=== PATIENT | male | born 1960 | race Caucasian/White ===

== ENCOUNTER 2016-09-11 11:12 | Observation (INO) | payer OTHER ==
[2016-09-11] MEDS ORDERED: ASPIRIN 81 MG CHEW PO STA (11:28)
[2016-09-11] MEDS ORDERED: NITROGLYCERIN OINT 1 INCH/GM PACKET TOPICAL STA (11:28)
[2016-09-11] MEDS ORDERED: NITROGLYCERIN SL TABS 0.4 MG TAB SUBLINGUAL STA (11:28)
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
[2016-09-11 11:48] LABS: Basophils % (A) 0 %; CH 29.6; CHCM 34.4; Eosinophils # (A) 0.1 k/uL (0-0.7); Eosinophils % (A) 1 %; HCT 43.9 % (39.0-53.0); HDW 2.58; HGB 15.2 gm/dL (13.0-17.5); Luc # (Auto) 0.14; Luc % (Auto) 2; Lymphocytes # (A) 2.4 k/uL (1.0-4.8); Lymphocytes % (A) 36 %; MCHC 34.7 g/dL (31.0-37.0); MCV 86.3 fL (80.0-100.0); Mean Platelet Volume 6.8; Monocytes # (A) 0.4 k/uL (0-1.0); Monocytes % (A) 5 %; Neutrophils # (A) 3.6 k/uL (1.3-7.7); Neutrophils % (A) 55 %; RBC 5.08 m/uL (4.30-5.90); RDW 12.8 % (11.5-15.5); WBC 6.6 k/uL (3.8-10.6); WBC (Perox) 6.41
[2016-09-11 11:56] LABS: ALT 23 U/L (21-72); AST 18 U/L (17-59); Alkaline Phosphatase 82 U/L (38-126); Anion Gap 11 mmol/L; Blood Urea Nitrogen 18 mg/dL (9-20); Calcium 9.5 mg/dL (8.4-10.2); Carbon Dioxide 23 mmol/L (22-30); Chloride 107 mmol/L (98-107); Glucose 101 mg/dL (74-99); Magnesium 1.9 mg/dL (1.6-2.3); Non-African American GFR(MDRD) >60 (>60 ml/min/1.73 sqM); Potassium 4.6 mmol/L (3.5-5.1); Sodium 141 mmol/L (137-145); Total Bilirubin 0.5 mg/dL (0.2-1.3); Total Protein 7.3 g/dL (6.3-8.2)
[2016-09-11 11:59] LABS: Partial Thromboplastin Time 23.8 sec (22.0-30.0)
--- NOTE | 2016-09-11 12:00 | XR ---
EXAMINATION TYPE: XR chest 2V DATE OF EXAM: 09/11/2016 COMPARISON: 10/03/2015 HISTORY: 55-year-old male with chest pain TECHNIQUE: Frontal and lateral views FINDINGS: The cardiomediastinal silhouette, aorta, and pulmonary vasculature are within normal limits. There is mild central peribronchial cuffing. Strandy atelectasis at the right base. Hyperinflation with david ening of the hemidiaphragms. No consolidation or pleural effusion. IMPRESSION: Possible underlying COPD. No acute process seen.
[2016-09-11 12:10] LABS: Creatine Kinase 101 U/L (55-170)
[2016-09-11 12:23] LABS: Creatine Kinase MB 1.2 ng/mL (0.0-2.4); Troponin I <0.012 ng/mL (0.000-0.034)
[2016-09-11] MEDS ORDERED: HEPARIN SODIUM,PORCINE 5,000 UNIT/ML 1 ML VIAL IV ONE (12:44)
[2016-09-11] MEDS ORDERED: HEPARIN SODIUM,PORCINE/D5W PMX 25,000 UNIT in DEXTROSE/WATER 1 500ML.BAG IV SCH (12:45)
[2016-09-11] MEDS ORDERED: NITROGLYCERIN SL TABS 0.4 MG TAB SUBLINGUAL PRN (14:23)
[2016-09-11 16:52] VITALS: BMI 28.8
[2016-09-11] MEDS: ACETAMINOPHEN TAB 325 MG TAB PO PRN ×2 (16:52→22:06)
[2016-09-11 18:57] LABS: Creatine Kinase 80 U/L (55-170)
[2016-09-11 19:07] LABS: Creatine Kinase MB 0.9 ng/mL (0.0-2.4)
[2016-09-11] MEDS ORDERED: HEPARIN SODIUM,PORCINE 5,000 UNIT/ML 1 ML VIAL IV PRN (19:32)
[2016-09-11 20:04] LABS: Troponin I <0.012 ng/mL (0.000-0.034)
[2016-09-11] MEDS: NITROGLYCERIN OINT 1 INCH/GM PACKET TOPICAL SCH ×2 (20:19→22:46)
[2016-09-12] MEDS: NITROGLYCERIN OINT 1 INCH/GM PACKET TOPICAL SCH ×3 (04:49→18:47)
[2016-09-12 04:55] LABS: Cholesterol 191 mg/dL (<200); HDL Cholesterol 27 mg/dL (40-60); Triglycerides 281 mg/dL (<150)
[2016-09-12 05:04] LABS: Creatine Kinase 68 U/L (55-170); Creatine Kinase MB 0.8 ng/mL (0.0-2.4); Troponin I <0.012 ng/mL (0.000-0.034)
[2016-09-12] MEDS ORDERED: ATORVASTATIN 80 MG TAB PO STA (08:25)
[2016-09-12] MEDS ORDERED: ALPRAZolam 0.25 MG TAB PO PRN (08:25)
[2016-09-12] MEDS ORDERED: SODIUM CHLORIDE 0.9% 1,000 ML in EMPTY BAG 1 BAG IV ONE (08:25)
[2016-09-12] MEDS ORDERED: ALPRAZolam 0.5 MG TAB PO PRN (08:25)
[2016-09-12] MEDS ORDERED: ASPIRIN 325 MG TAB PO SCH (09:00)
[2016-09-12] MEDS ORDERED: METOPROLOL SUCCINATE (ER) 100 MG TAB.ER.24H PO SCH (09:00)
[2016-09-12] MEDS: LISINOPRIL 20 MG TAB PO SCH (09:27)
--- NOTE | 2016-09-12 09:57 | ECHOF ---
Referral Reason:chest pain MEASUREMENTS -------- HEIGHT: 172.7 cm WEIGHT: 86.2 kg BP: 111/61 RVIDd: 2.5 cm (< 3.3) IVSd: 1.3 cm (0.6 - 1.1) LVIDd: 4.2 cm (3.9 - 5.3) LVPWd: 1.0 cm (0.6 - 1.1) IVSs: 1.5 cm LVIDs: 3.0 cm LVPWs: 1.3 cm LA Diam: 3.4 cm (2.7 - 3.8) LAESV Index (A-L): 18.50 ml/m Ao Diam: 3.0 cm (2.0 - 3.7) AV Cusp: 1.9 cm (1.5 - 2.6) LA Diam: 3.3 cm (2.7 - 3.8) MV EXCURSION: 21.171 mm (> 18.000) MV EF SLOPE: 77 mm/s (70 - 150) EPSS: 0.5 cm MV E Lenny: 0.57 m/s MV DecT: 302 ms MV A Lenny: 0.74 m/s MV E/A Ratio: 0.77 RAP: 5.00 mmHg RVSP: 14.84 mmHg FINDINGS -------- Sinus rhythm. This was a technically adequate study. There is borderline concentric left ventricular hypertrophy. Overall left ventricular systolic function is normal with, an EF between 55 - 60 %. The right ventricle is normal in size. Normal LA size by volume 22+/-6 ml/m2. The right atrial size is normal. There is mild aortic valve sclerosis. There is no evidence of aortic regurgitation. Mild mitral annular calcification present. Mild mitral regurgitation is present. Mild tricuspid regurgitation present. There is no evidence of pulmonary hypertension. The right ventricular systolic pressure, as measured by Doppler, is 14.84mmHg. Trace/mild (physiologic) pulmonic regurgitation. The aortic root size is normal. There is no pericardial effusion. CONCLUSIONS -------- 1. Sinus rhythm. 2. The right ventricular systolic pressure, as measured by Doppler, is 14.84mmHg. 3. Trace/mild (physiologic) pulmonic regurgitation. 4. The aortic root size is normal. 5. There is no pericardial effusion. 6. This was a technically adequate study. 7. There is borderline concentric left ventricular hypertrophy. 8. Normal LA size by volume 22+/-6 ml/m2. 9. There is mild aortic valve sclerosis. 10. Mild mitral annular calcification present. 11. Mild mitral regurgitation is present. 12. Mild tricuspid regurgitation present. 13. There is no evidence of pulmonary hypertension. VP PACKAGING: Juani Bustillo RDCS
[2016-09-12] MEDS ORDERED: SODIUM CHLORIDE 0.9% 1,000 ML IV ONE (11:05)
[2016-09-12] MEDS ORDERED: ALPRAZolam 0.25 MG TAB PO ONE (11:38)
[2016-09-12] MEDS ORDERED: diphenhydrAMINE 50 MG/ML 1 ML VIAL IVP ONE (11:50)
[2016-09-12] MEDS ORDERED: NITROGLYCERIN SL TABS 0.4 MG TAB SUBLINGUAL ONE (11:51)
[2016-09-12] MEDS ORDERED: MIDAZOLAM 2 MG/2 ML VIAL IV ONE (11:51)
[2016-09-12] MEDS ORDERED: LIDOCAINE 2% INJ 20 MG/ML SQ ONE (11:52)
[2016-09-12] MEDS ORDERED: IOHEXOL 350 MG/ML 125ML BOTTLE INJ ONE (12:08)
[2016-09-12 13:22] VITALS: RESP 18
[2016-09-12] MEDS ORDERED: SODIUM CHLORIDE 0.9% 1,000 ML IV SCH (13:30)
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
[2016-09-12] MEDS: ACETAMINOPHEN TAB 325 MG TAB PO PRN (19:53)
[2016-09-12] MEDS: METOPROLOL TARTRATE 50 MG TAB PO SCH (19:53)
[2016-09-13] MEDS: NITROGLYCERIN OINT 1 INCH/GM PACKET TOPICAL SCH (00:51)
[2016-09-13 08:22] VITALS: BP 150/85; PULSE 61; TEMP 97.6
[2016-09-13] MEDS: METOPROLOL TARTRATE 50 MG TAB PO SCH (08:46)
[2016-09-13] MEDS: LISINOPRIL 20 MG TAB PO SCH (08:46)
[2016-09-13] MEDS ORDERED: ISOSORBIDE MONONITRATE ER 30 MG TAB.ER.24H PO SCH (09:00)
[2016-09-13] MEDS ORDERED: ASPIRIN 81 MG CHEW PO SCH (09:00)
[2016-09-13] MEDS ORDERED: FAMOTIDINE 20 MG TAB PO SCH (09:00)
[2016-09-13] MEDS ORDERED: ATORVASTATIN 80 MG TAB PO SCH (09:00)
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
--- NOTE | 2016-09-13 14:59 | MISC ---
DATE OF SERVICE: 09/12/2016 RE: Ruy Aldo Nikkie Dear Dr. Matute; Thank you for the opportunity to participate in the care of Mr. Aldo Redmond. This gentleman has moderate non-critical disease in the circumflex and LAD system and right is small and nondominant. Filling pressures are normal. LV gram was not performed but by echo, LV gram was normal. Continued aggressive medical therapy with risk factor modifications advised and I expect the patient to be discharged tomorrow. Thank you for your referral and please call for questions. With kindest regards. Sincerely yours, MD SYMONE Cosme
--- NOTE | 2016-09-13 15:05 | PN ---
Mr. Redmond underwent a cardiac cath from left femoral approach. His left femoral site is clean and dry. Blood pressure 118/70. Pulse rate 62 per minute. S1, S2 heard normally. Lungs are clear. Abdomen and lower extremity exam is unchanged. The plan is to discharge him on current medications which includes Metoprolol tartrate 50 mg b.i.d., Lisinopril 20 mg daily and Imdur 30 mg daily. The patient has a left dominant system, moderate noncritical disease for which I am recommending aggressive medical therapy or risk factor modification including lipid lowering agents. He can be discharged today. I will see him in the office in one week. Discharge instructions regarding activity, diet, medications were given. SYMONE
[2016-09-13] MEDS ORDERED: ATORVASTATIN 20 MG TAB PO SCH (21:00)
== END 2016-09-13 10:55 | disposition home or self-care (01) ==
LOC: EC 11:12 → 3OBS 14:23
PROVIDERS: ADMIT Family Medicine; ATTEND Family Medicine
DX: I25.110 Atherosclerotic heart disease of native coronary artery with unstable angina pectoris (principal); I10 Essential (primary) hypertension; E78.2 Mixed hyperlipidemia; F32.9 Major depressive disorder, single episode, unspecified; Z89.512 Acquired absence of left leg below knee; Z82.49 Family history of ischemic heart disease and other diseases of the circulatory system; Z79.899 Other long term (current) drug therapy; Z79.82 Long term (current) use of aspirin; Z87.891 Personal history of nicotine dependence
CPT/HCPCS: 96376 ×3; 96365 ×2; 96366 ×4; 99291 ×2; 99152; 96361; 36415; 94760; 93005; 93306; 93458; 80061; 80053; 82550 ×2; 82553 ×2; 83735; 84484 ×2; 85025; 85610; 85730; 71020; G0378 ×3; C1894 ×2; C1769 ×2; J2001; J2250; J1200; J1644 ×2; Q9967

== ENCOUNTER 2017-09-07 15:05 | Emergency (ER) | payer OTHER ==
[2017-09-07 15:29] VITALS: BP 120/76; PULSE 79; RESP 20; TEMP 99.4
[2017-09-07] MEDS ORDERED: DIPH,PERTUS(ACELL)TETVAC-LF 0.5 ML VIAL IM ONE (16:05)
[2017-09-07] MEDS ORDERED: LIDOCAINE 1% INJ 10MG/ML (20 ML MDV) SQ ONE (16:14)
--- NOTE | 2017-09-07 17:38 | XR ---
EXAMINATION TYPE: XR hand complete LT DATE OF EXAM: 09/07/2017 COMPARISON: NONE HISTORY: Laceration TECHNIQUE: 3 views FINDINGS: There is soft tissue deformity at the posterior aspect of the proximal little finger. I see no fracture nor dislocation. Joint spaces are fairly normal. There are no erosions. IMPRESSION: Soft tissue deformity. No fracture.
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
== END 2017-09-07 18:39 | disposition home or self-care (01) ==
LOC: EC 15:05
DX: S61.217A Laceration without foreign body of left little finger without damage to nail, initial encounter (principal); I10 Essential (primary) hypertension; Z23 Encounter for immunization; Z87.891 Personal history of nicotine dependence; Z79.82 Long term (current) use of aspirin; Z79.899 Other long term (current) drug therapy; W23.0XXA Caught, crushed, jammed, or pinched between moving objects, initial encounter
CPT/HCPCS: 73130; 90715; 99283; 12002; 90471; J2001

== ENCOUNTER 2018-09-19 16:46 | Emergency (ER) | payer OTHER ==
[2018-09-19] MEDS ORDERED: SODIUM CHLORIDE 0.9% 1,000 ML IV STA (17:24)
[2018-09-19 17:45] LABS: Basophils % (A) 0 %; Eosinophils # (A) 0.2 k/uL (0-0.7); Eosinophils % (A) 2 %; HCT 40.9 % (39.0-53.0); HGB 13.9 gm/dL (13.0-17.5); Lymphocytes # (A) 1.8 k/uL (1.0-4.8); Lymphocytes % (A) 20 %; MCH 29.2 pg (25.0-35.0); MCV 85.9 fL (80.0-100.0); Mean Platelet Volume 6.9; Monocytes # (A) 0.3 k/uL (0-1.0); Monocytes % (A) 4 %; Neutrophils # (A) 6.7 k/uL (1.3-7.7); Neutrophils % (A) 74 %; Platelet Count 251 k/uL (150-450); RBC 4.76 m/uL (4.30-5.90); RDW 13.8 % (11.5-15.5); WBC 9.1 k/uL (3.8-10.6)
[2018-09-19 17:56] LABS: ALT 21 U/L (21-72); AST 19 U/L (17-59); African American GFR (CKD) >90 (>60 ml/min/1.73 sqM); Alkaline Phosphatase 80 U/L (38-126); Anion Gap 9 mmol/L; Blood Urea Nitrogen 20 mg/dL (9-20); Calcium 9.2 mg/dL (8.4-10.2); Carbon Dioxide 24 mmol/L (22-30); Chloride 108 mmol/L (98-107); Glucose 123 mg/dL (74-99); Potassium 4.2 mmol/L (3.5-5.1); Sodium 141 mmol/L (137-145); Total Bilirubin 0.4 mg/dL (0.2-1.3); Total Protein 6.7 g/dL (6.3-8.2)
[2018-09-19] MEDS ORDERED: IPRATROPIUM-ALBUTEROL 3 ML NEB INHALATION STA (17:59)
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
--- NOTE | 2018-09-19 18:51 | XR ---
EXAMINATION TYPE: XR chest 2V DATE OF EXAM: 09/19/2018 COMPARISON: 09/11/2016 HISTORY: Short of breath TECHNIQUE: Frontal and lateral views of the chest are obtained. FINDINGS: Heart and mediastinum are normal. Lungs are clear. Diaphragm is normal. Bony thorax is nor mal. IMPRESSION: Normal chest. No change.
[2018-09-19 19:04] VITALS: BP 151/94; PULSE 76; RESP 20; TEMP 98.3
== END 2018-09-19 19:00 | disposition home or self-care (01) ==
LOC: EC 16:46
DX: T52.0X1A Toxic effect of petroleum products, accidental (unintentional), initial encounter (principal); I10 Essential (primary) hypertension; Z87.891 Personal history of nicotine dependence; Z53.29 Procedure and treatment not carried out because of patient's decision for other reasons; Z79.82 Long term (current) use of aspirin; Z79.899 Other long term (current) drug therapy; Y93.89 Activity, other specified
CPT/HCPCS: 36415; 71046; 80053; 85025; 99284

== ENCOUNTER → 2018-12-21 | Outpatient (CLI) | payer SELFPAY ==
--- NOTE | 2018-12-21 14:16 | CT ---
EXAMINATION TYPE: CT abdomen pelvis w con DATE OF EXAM: 12/21/2018 COMPARISON: None HISTORY: LOWER ABDOMINAL PAIN, RLQ CT DLP: 1224.6 mGycm Automated exposure control for dose reduction was used. TECHNIQUE: Helical acquisition of images was performed from the lung bases through the pelvis. CONTRAST: Performed with Oral Contrast and with IV Contrast, patient injected with 100 mL of Isovue 300. FINDINGS: LUNG BASES: No significant abnormality is appreciated. LIVER/GB: Hepatic parenchyma is diffusely hypoattenuated in comparison to that of the spleen, most co mmonly seen in hepatic steatosis. This finding limits evaluation for hepatic masses. No gross evidenc e of hepatic mass is seen. No intrahepatic biliary ductal dilatation. No cholelithiasis. PANCREAS: Mild generalized pancreatic atrophy with fatty infiltration. No peripancreatic fat strandin g. No ductal dilatation. SPLEEN: No significant abnormality is seen. ADRENALS: No significant abnormality is seen. KIDNEYS: No hydronephrosis or nephrolithiasis. Kidneys enhance and excrete symmetrically. FREE AIR: No free air is visualized. URINARY BLADDER: No significant abnormality is seen. ADENOPATHY: No greater than 1 cm short axis lymph node in the abdomen or pelvis. OSSEOUS STRUCTURES: Mild multilevel degenerative changes of the spine. Osseous structures are grossl y intact. BOWEL: Appendix is partially contrast-filled and within normal limits of size. No periappendiceal fa t stranding changes are seen. No dilated large or small bowel. There is a fat filled right inguinal h ernia. This is marked on coronal series 7 image 40. OTHER: Since of atherosclerosis of the abdominal aorta and its branches. IMPRESSION: 1. NO CT EVIDENCE OF ACUTE APPENDICITIS IN THIS PATIENT WITH RIGHT LOWER QUADRANT PAIN. FAT FILLED RI GHT INGUINAL HERNIA IS SEEN. 2. MILD DEGREE HEPATIC STEATOSIS.
[2018-12-21 14:17] LABS: Basophils # (A) 0.1 k/uL (0-0.2); Basophils % (A) 1 %; Eosinophils # (A) 0.1 k/uL (0-0.7); Eosinophils % (A) 2 %; HCT 45.9 % (39.0-53.0); HGB 14.6 gm/dL (13.0-17.5); Lymphocytes # (A) 1.9 k/uL (1.0-4.8); Lymphocytes % (A) 29 %; MCH 28.9 pg (25.0-35.0); MCHC 31.8 g/dL (31.0-37.0); MCV 90.8 fL (80.0-100.0); Mean Platelet Volume 6.4; Monocytes # (A) 0.3 k/uL (0-1.0); Monocytes % (A) 5 %; Neutrophils # (A) 4.2 k/uL (1.3-7.7); Neutrophils % (A) 63 %; Platelet Count 270 k/uL (150-450); RBC 5.05 m/uL (4.30-5.90); RDW 12.8 % (11.5-15.5); WBC 6.7 k/uL (3.8-10.6)
[2018-12-21 14:30] LABS: ALT 24 U/L (21-72); AST 18 U/L (17-59); African American GFR (CKD) >90 (>60 ml/min/1.73 sqM); Albumin 4.4 g/dL (3.5-5.0); Alkaline Phosphatase 86 U/L (38-126); Anion Gap 8 mmol/L; Blood Urea Nitrogen 15 mg/dL (9-20); Calcium 9.6 mg/dL (8.4-10.2); Carbon Dioxide 28 mmol/L (22-30); Chloride 103 mmol/L (98-107); Glucose 94 mg/dL (74-99); Potassium 4.5 mmol/L (3.5-5.1); Sodium 139 mmol/L (137-145); Total Bilirubin 0.5 mg/dL (0.2-1.3); Total Protein 7.4 g/dL (6.3-8.2)
== END | disposition home or self-care (01) ==
LOC: RADCTMAIN 12:02
PROVIDERS: ATTEND Nurse Practitioner Family
DX: K40.90 Unilateral inguinal hernia, without obstruction or gangrene, not specified as recurrent (principal); K76.0 Fatty (change of) liver, not elsewhere classified
CPT/HCPCS: 80053; 85025; 74177; 36415; Q9967

== ENCOUNTER → 2019-04-04 | Outpatient (CLI) | payer OTHER ==
--- NOTE | 2019-04-04 11:14 | US ---
EXAMINATION TYPE: US abdomen complete DATE OF EXAM: 04/04/2019 COMPARISON: NONE CLINICAL HISTORY: RT Upper Quad R10.11. Patient is under the impression he has a mass in his pancreas and liver, prior CT report from 12/22 does not state that information. General abd pain EXAM MEASUREMENTS: Liver Length: 18.2 cm Gallbladder Wall: 0.2 cm CBD: 0.3 cm Spleen: 11.7 cm Right Kidney: 10.5 x 4.4 x 4.6 cm Left Kidney: 10.3 x 4.0 x 5.1 cm Pancreas: Obscuration the pancreatic head and tail by overlying bowel gas. Liver: wnl Gallbladder: wnl Evidence for sonographic Rojas's sign: no CBD: wnl Spleen: wnl Right Kidney: wnl Left Kidney: wnl Upper IVC: wnl Aorta: midline bowel gas obscures view of vessel The liver is homogenous. The intrahepatic portion of the IVC and proximal abdominal aorta are within normal limits. There is no evidence of cholelithiasis. Common bile duct is unremarkable. The visu alized portions of the pancreas are homogenous. The spleen is unremarkable. Kidneys are symmetric a nd free of hydronephrosis. No renal lesions are seen. IMPRESSION: The previously seen mild degree hepatic steatosis on the prior CT of 12/21/2018 is not re produced sonographically. Pancreatic head and tail are obscured by bowel gas, otherwise unremarkable exam.
== END | disposition home or self-care (01) ==
LOC: RADUSWWP 10:02
PROVIDERS: ATTEND Student in an Organized Health Care Education/Training Program
DX: R14.3 Flatulence (principal)
CPT/HCPCS: 76700

== ENCOUNTER 2019-05-09 11:57 | Day surgery (SDC) | payer OTHER ==
[2019-05-07 11:06] VITALS: BMI 28.1
[~2019-05-09 11:57] MED LIST: DEXAMETHASONE SOD PHOSPHATE 10 MG/ML 1 ML VIAL IV ONE; LACTATED RINGERS 1,000 ML IV SCH; LIDOCAINE 1% (10MG/ML) FOR IV START INTRADERMA PRN; MIDAZOLAM 2 MG/2 ML VIAL IV PRN
[2019-05-09] MEDS ORDERED: ONDANSETRON 4 MG/2 ML VIAL IVP ONE (12:34)
[2019-05-09] MEDS ORDERED: MIDAZOLAM 2 MG/2 ML VIAL IV ONE (12:53)
[2019-05-09] MEDS ORDERED: fentaNYL (PF) 50 MCG/ML 2 ML AMP IV ONE (12:54)
[2019-05-09] MEDS ORDERED: ROCURONIUM BROMIDE 10 MG/ML 5 ML VIAL IV ONE (13:11)
[2019-05-09] MEDS ORDERED: MIDAZOLAM 2 MG/2 ML VIAL ONE (13:11)
[2019-05-09] MEDS ORDERED: SUCCINYLCHOLINE CHLORIDE 100 MG/5 ML SYR IV ONE (13:11)
[2019-05-09] MEDS ORDERED: LIDOCAINE 1% INJ 10MG/ML (20 ML MDV) ONE (13:11)
[2019-05-09] MEDS ORDERED: PROPOFOL 10 MG/ML 20 ML VIAL IV ONE (13:11)
[2019-05-09] MEDS ORDERED: NEOSTIGMINE 1 MG/ML 10 ML VIAL ONE (13:11)
[2019-05-09] MEDS ORDERED: GLYCOPYRROLATE 0.2 MG/ML 2 ML VIAL ONE (13:11)
[2019-05-09] MEDS ORDERED: KETAMINE 10 MG/ML 20 ML VIAL ONE (13:11)
[2019-05-09] MEDS ORDERED: fentaNYL (PF) 50 MCG/ML 2 ML AMP ONE (13:11)
[2019-05-09 13:20] LABS: Basophils % (A) 0 %; Eosinophils # (A) 0.1 k/uL (0-0.7); Eosinophils % (A) 2 %; HCT 42.4 % (39.0-53.0); HGB 14.2 gm/dL (13.0-17.5); Lymphocytes % (A) 29 %; MCH 29.4 pg (25.0-35.0); MCHC 33.4 g/dL (31.0-37.0); MCV 87.9 fL (80.0-100.0); Mean Platelet Volume 7.6; Monocytes # (A) 0.3 k/uL (0-1.0); Monocytes % (A) 5 %; Neutrophils # (A) 4.3 k/uL (1.3-7.7); Neutrophils % (A) 63 %; Platelet Count 255 k/uL (150-450); RBC 4.82 m/uL (4.30-5.90); RDW 12.4 % (11.5-15.5); WBC 6.8 k/uL (3.8-10.6)
[2019-05-09] MEDS ORDERED: BUPIVACAINE (PF) 0.25% 30 ML VIAL SQ ONE ×2 (14:01)
[2019-05-09] MEDS ORDERED: LACTATED RINGERS 1,000 ML IV ONE (14:32)
[2019-05-09 15:05] VITALS: TEMP 97
[2019-05-09 15:06] VITALS: RESP 16
--- NOTE | 2019-05-09 15:18 | P.OP ---
Date of Procedure: 05/09/19 Preoperative Diagnosis: Right inguinal hernia Postoperative Diagnosis: Same Procedure(s) Performed: Robotic-assisted right inguinal hernia repair. Anesthesia: JAMAL Surgeon: Peter Styles Estimated Blood Loss (ml): 5 Condition: stable Disposition: PACU Description of Procedure: Patient is brought operative suite remained in supine position underwent general endotracheal anesthesia per Department of anesthesia prepped and draped in usual sterile fashion timeout performed correct patient correct procedure correct site was verified. A 1 C incision was made just superior to the umbilicus carried down the fascia which was incised in the usual fashion 8 mm port was placed abdomen was insufflated 11 cm off the midline on either side 8 mm ports were placed under direct visualization. The robot was undocked. The patient was placed in Trendelenburg only right-sided defect was noted. The peritoneum was incised and taken down medially to the pubes. The direct defect was reduced there was a small indirect defect which was reduced off the cord. Inferiorly dissection was carried out to the psoas. There was adequate lateral dissection noted for mesh placement. Procrit mesh was placed following this the peritoneum was reapproximated using 6 inch 3-0 Vlock suture. The needle was then removed u nder direct visualization. Ports are removed abdomen was desufflated. The midline fascia was closed with an 0 Vicryl in a [id number] fashion. Skin was closed with 4-0 Vicryl and skin glue. Patient tolerated the procedure well no apparent complications Plan - Discharge Summary Discharge Rx Participant: No New Discharge Prescriptions: New HYDROcodone/APAP 5-325MG [[place] 5-325] 1 tab PO Q4HR PRN 3 Days #10 tab PRN Reason: Pain No Action Aspirin 81 mg PO DAILY Lisinopril [Prinivil] 20 mg PO QAM Atorvastatin [Lipitor] 40 mg PO DAILY Metoprolol Succinate (ER) [Toprol Xl] 100 mg PO QAM Discharge Medication List Aspirin 81 mg PO DAILY 10/09/14 [History] Lisinopril [Prinivil] 20 mg PO QAM 10/09/14 [History] Atorvastatin [Lipitor] 40 mg PO DAILY 09/13/16 [History] Metoprolol Succinate (ER) [Toprol Xl] 100 mg PO QAM 09/19/18 [History] HYDROcodone/APAP 5-325MG [[place] 5-325] 1 tab PO Q4HR PRN 3 Days #10 tab 05/09/19 [Rx] Follow up Appointment(s)/Referral(s): Peter Styles DO [Doctor of Osteopathic Medicine] - 2 Weeks Activity/Diet/Wound Care/Special Instructions: No lifting over 15lbs for 5 weeks. Patient may shower tomorrow. Pat dry. No baths or swimming for 3 weeks Discharge Disposition: HOME SELF-CARE
[2019-05-09] MEDS: fentaNYL (PF) 50 MCG/ML 2 ML AMP IV PRN ×2 (15:21→15:30)
--- NOTE | 2019-05-09 15:30 | P.ANPRN ---
Procedure Note - Anesthesia - Nerve Block Performed Right Transversus Abdominis Time Out Performed: Yes (1252) Date of Procedure: 05/09/19 Procedure Start Time: 12:53 Procedure Stop Time: 12:57 Location of Patient: PreOp Indication: Acute Post-Operative Pain, Requested by Surgeon Specifically requested for management of pain by DrSeb: Peter Styles Sedation Type: Sedate with meaningful contact maintained Preparation: Sterile Prep Position: Supine Needle Types: Pajunk Needle Gauge: 20 Ultrasound used to visualize needle placement: Yes Ultrasound used to observe medication spread: Yes Injectate: 0.5% Ropivacaine (see comment for volume) (30cc) Blood Aspirated: No Pain Paresthesia on Injection Noted: No Resistance on Injection: Normal Image Stored and Saved: Yes Events: Uneventful and Well Tolerated
[2019-05-09 16:12] VITALS: BP 153/74; PULSE 54
[2019-05-09] MEDS ORDERED: IV FLUID CONTINUATION 1,000 ML IV ONE (16:29)
== END 2019-05-09 16:36 | disposition home or self-care (01) ==
LOC: OR 11:57
PROVIDERS: ATTEND Student in an Organized Health Care Education/Training Program
DX: K40.90 Unilateral inguinal hernia, without obstruction or gangrene, not specified as recurrent (principal); I10 Essential (primary) hypertension; I25.2 Old myocardial infarction; E78.5 Hyperlipidemia, unspecified; K21.9 Gastro-esophageal reflux disease without esophagitis; Z79.82 Long term (current) use of aspirin; Z79.899 Other long term (current) drug therapy
CPT/HCPCS: 64486; 85025; 49650; C1781; J2250; J1100; J2710; J0690; J2405; J2001; J3010; J0330; J2704

== ENCOUNTER 2020-09-09 13:38 | Observation (INO) | payer OTHER ==
[2020-09-09] MEDS ORDERED: methylPREDNISolone SOD SUCCI 125 MG/2 ML VIAL IV STA (14:05)
[2020-09-09] MEDS ORDERED: diphenhydrAMINE 50 MG/ML 1 ML VIAL IVP STA (14:05)
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
[2020-09-09] MEDS ORDERED: TRANEXAMIC ACID 1,000 MG in SODIUM CHLORIDE 0.9% 100 ML IVPB ONE (14:48)
[2020-09-09 16:22] LABS: Basophils % (A) 0 %; Eosinophils # (A) 0.1 k/uL (0-0.7); Eosinophils % (A) 1 %; HGB 14.2 gm/dL (13.0-17.5); Lymphocytes # (A) 1.3 k/uL (1.0-4.8); Lymphocytes % (A) 13 %; MCH 30.3 pg (25.0-35.0); MCHC 34.6 g/dL (31.0-37.0); MCV 87.5 fL (80.0-100.0); Mean Platelet Volume 6.9; Monocytes # (A) 0.3 k/uL (0-1.0); Monocytes % (A) 3 %; Neutrophils # (A) 8.1 k/uL (1.3-7.7); Neutrophils % (A) 83 %; Platelet Count 220 k/uL (150-450); RBC 4.69 m/uL (4.30-5.90); RDW 12.6 % (11.5-15.5); WBC 9.8 k/uL (3.8-10.6)
[2020-09-09 16:33] LABS: ALT 26 U/L (4-49); AST 27 U/L (17-59); African American GFR (CKD) >90 (>60 ml/min/1.73 sqM); Albumin 4.1 g/dL (3.5-5.0); Alkaline Phosphatase 70 U/L (38-126); Anion Gap 6 mmol/L; Blood Urea Nitrogen 18 mg/dL (9-20); Calcium 9.5 mg/dL (8.4-10.2); Carbon Dioxide 28 mmol/L (22-30); Chloride 105 mmol/L (98-107); Glucose 100 mg/dL (74-99); Non-African American GFR(CKD) >90 (>60 ml/min/1.73 sqM); Potassium 4.8 mmol/L (3.5-5.1); Sodium 139 mmol/L (137-145); Total Bilirubin 0.3 mg/dL (0.2-1.3); Total Protein 6.7 g/dL (6.3-8.2)
[2020-09-09 16:37] LABS: INR 0.9 (<1.2); Partial Thromboplastin Time 22.3 sec (22.0-30.0); Prothrombin Time 9.7 sec (9.0-12.0)
[2020-09-09] MEDS ORDERED: ACETAMINOPHEN TAB 325 MG TAB PO PRN (16:43)
[2020-09-09] MEDS ORDERED: NALOXONE 0.4 MG/ML 1 ML VIAL IV PRN (16:43)
[2020-09-09] MEDS ORDERED: diphenhydrAMINE 50 MG/ML 1 ML VIAL IVP PRN (16:46)
[2020-09-09 19:38] VITALS: RESP 18
[2020-09-09] MEDS: methylPREDNISolone SOD SUCCI 125 MG/2 ML VIAL IV SCH (23:00)
[2020-09-10 07:53] VITALS: BP 149/107; PULSE 67; TEMP 97.9
[2020-09-10] MEDS: methylPREDNISolone SOD SUCCI 125 MG/2 ML VIAL IV SCH (08:54)
[2020-09-10 10:20] LABS: Basophils % (A) 0 %; Eosinophils % (A) 0 %; HCT 45.8 % (39.0-53.0); HGB 15.7 gm/dL (13.0-17.5); Lymphocytes # (A) 1.6 k/uL (1.0-4.8); Lymphocytes % (A) 8 %; MCH 30.2 pg (25.0-35.0); MCHC 34.3 g/dL (31.0-37.0); MCV 88.1 fL (80.0-100.0); Mean Platelet Volume 7.3; Monocytes # (A) 0.5 k/uL (0-1.0); Monocytes % (A) 2 %; Neutrophils # (A) 17.7 k/uL (1.3-7.7); Neutrophils % (A) 89 %; Platelet Count 278 k/uL (150-450); RDW 12.7 % (11.5-15.5); WBC 19.9 k/uL (3.8-10.6)
[2020-09-10 10:26] LABS: African American GFR (CKD) >90 (>60 ml/min/1.73 sqM); Anion Gap 11 mmol/L; Blood Urea Nitrogen 20 mg/dL (9-20); Calcium 10.1 mg/dL (8.4-10.2); Carbon Dioxide 24 mmol/L (22-30); Chloride 104 mmol/L (98-107); Glucose 161 mg/dL (74-99); Non-African American GFR(CKD) >90 (>60 ml/min/1.73 sqM); Potassium 4.6 mmol/L (3.5-5.1); Sodium 139 mmol/L (137-145)
[2020-09-10] MEDS ORDERED: METOPROLOL SUCCINATE (ER) 50 MG TAB.ER.24H PO SCH (11:00)
[2020-09-10] MEDS ORDERED: VALSARTAN 160 MG TAB PO SCH (11:00)
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
== END 2020-09-10 11:50 ==
LOC: EC 13:38 → 6NMEDSUR 16:44
PROVIDERS: ADMIT Family Medicine; ATTEND Family Medicine
DX: T78.3XXA Angioneurotic edema, initial encounter (principal); I10 Essential (primary) hypertension; R00.2 Palpitations; F32.9 Major depressive disorder, single episode, unspecified; N48.30 Priapism, unspecified; G56.03 Carpal tunnel syndrome, bilateral upper limbs; F12.90 Cannabis use, unspecified, uncomplicated; Z79.899 Other long term (current) drug therapy; Z88.8 Allergy status to other drugs, medicaments and biological substances; Z89.512 Acquired absence of left leg below knee; Z86.74 Personal history of sudden cardiac arrest; Z80.9 Family history of malignant neoplasm, unspecified
CPT/HCPCS: 96376 ×2; 96365; 96375; 36415; 80053; 80048; 85025 ×2; 85610; 85730; G0378 ×2; J1200; J2930 ×2

== ENCOUNTER 2021-01-25 09:48 | Emergency (ER) | payer OTHER ==
[2021-01-25 10:27] VITALS: TEMP 98
[2021-01-25] MEDS ORDERED: diphenhydrAMINE 50 MG/ML 1 ML VIAL IVP STA (11:16)
[2021-01-25] MEDS ORDERED: ONDANSETRON 4 MG/2 ML VIAL IVP STA (11:16)
[2021-01-25] MEDS ORDERED: SODIUM CHLORIDE 0.9% 1,000 ML IV STA (11:16)
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
--- NOTE | 2021-01-25 11:56 | CT ---
EXAMINATION TYPE: CT brain wo con DATE OF EXAM: 01/25/2021 COMPARISON: CT 11/02/2012 HISTORY: Hypertension CT DLP: 1139.4 mGycm Automated exposure control for dose reduction was used. Helical imaging through the brain. FINDINGS: There is no significant interval change. There is no hemorrhage or hydrocephalus. Brain density is no rmal. Mild cortical atrophy is stable. Paranasal sinuses show inflammatory change in the ethmoid air cells. Calvarium is intact. IMPRESSION: MILD SINUS DISEASE. UNREMARKABLE BRAIN CT.
[2021-01-25] MEDS ORDERED: KETOROLAC 30 MG/ML 1 ML VIAL IVP STA (11:58)
[2021-01-25 12:01] LABS: Basophils % (A) 1 %; Eosinophils # (A) 0.1 k/uL (0-0.7); Eosinophils % (A) 2 %; HCT 42.2 % (39.0-53.0); HGB 14.2 gm/dL (13.0-17.5); Lymphocytes # (A) 1.8 k/uL (1.0-4.8); Lymphocytes % (A) 26 %; MCH 29.8 pg (25.0-35.0); MCHC 33.5 g/dL (31.0-37.0); MCV 88.8 fL (80.0-100.0); Mean Platelet Volume 7.7; Monocytes # (A) 0.4 k/uL (0-1.0); Monocytes % (A) 6 %; Neutrophils # (A) 4.5 k/uL (1.3-7.7); Neutrophils % (A) 64 %; Platelet Count 244 k/uL (150-450); RBC 4.75 m/uL (4.30-5.90); RDW 12.7 % (11.5-15.5)
[2021-01-25 12:06] LABS: African American GFR (CKD) >90 (>60 ml/min/1.73 sqM); Anion Gap 8 mmol/L; Blood Urea Nitrogen 18 mg/dL (9-20); Calcium 9.1 mg/dL (8.4-10.2); Carbon Dioxide 23 mmol/L (22-30); Chloride 108 mmol/L (98-107); Glucose 107 mg/dL (74-99); Non-African American GFR(CKD) >90 (>60 ml/min/1.73 sqM); Potassium 4.9 mmol/L (3.5-5.1); Sodium 139 mmol/L (137-145)
[2021-01-25 13:21] VITALS: BP 148/88; PULSE 78; RESP 18
== END 2021-01-25 13:20 | disposition home or self-care (01) ==
LOC: EC 09:48
DX: J32.9 Chronic sinusitis, unspecified (principal); R42 Dizziness and giddiness; I10 Essential (primary) hypertension; Z88.8 Allergy status to other drugs, medicaments and biological substances; Z79.899 Other long term (current) drug therapy; Z20.822 Contact with and (suspected) exposure to COVID-19
CPT/HCPCS: 36415; 93005; 80048; 85025; 87635; 70450; 99284; 96374; 96375; 96361; J1200; J2405; J1885

== ENCOUNTER → 2022-01-11 | Outpatient (CLI) | payer OTHER ==
--- NOTE | 2022-01-11 10:08 | CT ---
EXAMINATION TYPE: CT lumbar spine wo con DATE OF EXAM: 01/11/2022 9:44 AM COMPARISON: 12/08/2015 HISTORY: low back pain, Rt sided sciatica CT DLP: 991 mGycm Automated exposure control for dose reduction was used. Unenhanced CT of the lumbar spine was performed. Bone and soft tissue window settings are submitted as well as coronal and sagittal reconstructions. Assessment spinal canal limiting the resolution artifacts. Atherosclerotic change of the vasculature including the aorta and its side branches. L1-L2: No disc herniation or canal stenosis. No foraminal encroachment. Mild hypertrophic change sinc e. L2-L3: Broad-based disc protrusion with effacement of thecal sac slightly greater paracentrally to th e left. There is left-sided foraminal encroachment. Findings are suspicious for canal stenosis. Verte bral body hemangioma L2. L3-L4: Ebpm-tn-[id number] degenerative disc disease with hypertrophic spurring anteriorly. Broad-based central disc bulging greater paracentrally to the left. Mild bilateral foraminal encroachment greater on the left. Suspect central canal stenosis. L4-L5: A broad-based disc protrusion with effacement of thecal sac. There is bilateral foraminal encr oachment. Hypertrophic arthropathy of the facet joints. Findings compatible with central stenosis. L5-S1: There is hypertrophic facet arthropathy. No disc herniation or canal stenosis. Neural foramina patent bilaterally. IMPRESSION: 1. Multilevel degenerative disc disease with facet arthropathy. There is multilevel disc protrusions resulting in multilevel canal stenosis and foraminal encroachment. Recommend MRI.
== END | disposition home or self-care (01) ==
LOC: RADCTMAIN 09:21
PROVIDERS: ATTEND Family Medicine
DX: M51.36 Other intervertebral disc degeneration, lumbar region (principal); M47.816 Spondylosis without myelopathy or radiculopathy, lumbar region; M48.061 Spinal stenosis, lumbar region without neurogenic claudication; M51.26 Other intervertebral disc displacement, lumbar region
CPT/HCPCS: 72131

== ENCOUNTER → 2022-03-16 | Outpatient (CLI) | payer OTHER ==
--- NOTE | 2022-03-16 07:25 | MR ---
EXAMINATION TYPE: MR lumbar spine wo con DATE OF EXAM: 03/16/2022 COMPARISON: Primary MRI lumbar spine December 08, 2015. Prior CT lumbar spine January 11, 2022 HISTORY: Lower back pain, BLE radiculopathy. TECHNIQUE: Multiplanar, multisequence imaging of the lumbar spine is performed without IV contrast. FINDINGS: Sagittal images of the lumbar spine show vertebral body heights and alignment to remain sta ble and satisfactory. Multilevel disc desiccation is redemonstrated. Mild disc space narrowing L3-L4 level is again seen with moderate to severe anterior spurring. The conus medullaris remains normal in position and signal ending at L1-L2 disc space level. A hemangioma posterior L2 vertebral body le michelle is redemonstrated. Bone marrow signal intensity is preserved. Axial images show the T12-L1 and L1-L2 levels to remain within normal limits. Axial images at L2-L3 level demonstrates mild broad disc bulge minimally effacing anterior thecal sac , bilateral neural foramina are patent. No significant change from prior MRI. Axial images at L3-L4 level appear within normal limits. Axial images at L4-L5 level show mild broad disc bulge and mild to moderate right greater than left f acet degenerative changes. Spinal canal is preserved. There is mild bilateral anterior-inferior savage ral foraminal narrowing at this level redemonstrated. Facet arthropathy progression from 2016 MRI on the right otherwise no significant change. Axial images at L5-S1 level show mild to moderate facet degenerative changes bilaterally. Spinal can al is preserved. Bilateral neural foramina are patent. Paraspinal muscle bulk is preserved. IMPRESSION: Multilevel degenerative changes in the mid to lower lumbar spine as detailed above. Min imal change from 2016 MRI noted.
== END | disposition home or self-care (01) ==
LOC: RADMRIMAIN 06:01
PROVIDERS: ATTEND Family Medicine
DX: M47.816 Spondylosis without myelopathy or radiculopathy, lumbar region (principal); M99.73 Connective tissue and disc stenosis of intervertebral foramina of lumbar region; M48.061 Spinal stenosis, lumbar region without neurogenic claudication; M51.26 Other intervertebral disc displacement, lumbar region
CPT/HCPCS: 72148

== ENCOUNTER 2022-05-19 12:12 | Day surgery (SDC) | payer OTHER ==
[~2022-05-19 12:12] MED LIST changes: -DEXAMETHASONE SOD PHOSPHATE 10 MG/ML 1 ML VIAL IV ONE; -MIDAZOLAM 2 MG/2 ML VIAL IV PRN
[2022-05-19 12:51] VITALS: TEMP 97.6
[2022-05-19] MEDS ORDERED: MIDAZOLAM 2 MG/2 ML VIAL ONE (13:07)
[2022-05-19] MEDS ORDERED: fentaNYL (PF) 50 MCG/ML 2 ML AMP ONE (13:07)
[2022-05-19] MEDS ORDERED: IOPAMIDOL M200 10 ML VIAL ONE (13:07)
[2022-05-19] MEDS ORDERED: methylPREDNISolone ACETATE 80 MG/ML 1 ML VIAL ONE (13:07)
[2022-05-19] MEDS ORDERED: LACTATED RINGERS 950 ML IV ONE (13:08)
--- NOTE | 2022-05-19 13:19 | P.PCN ---
Date of Procedure: 05/19/22 Procedure(s) Performed: PREOPERATIVE DIAGNOSIS: 1-Lumbar radiculopathy . 2-lumbar degenerative disc disease. 3-lumbar spondylosis with lumbar facet arthropathy POSTOPERATIVE DIAGNOSIS: Same as preoperative diagnoses. PROCEDURE 1. Transforaminal epidural steroid injection under fluoroscopic guidance at right L4-5 level. (Fluoroscopy images stored on file in the radiology Department ) 2. Lumbar epidurogram . ANESTHESIA: Local with 1% lidocaine 3 ml , moderate sedation with intravenous Versed 2 mg and fentanyle 50 micrograms. Sedation start time : 1309 . Sedation. stop time : 1317 . EBL: Minimal PROCEDURE INDICATION: The patient with low back pain and radiculopathy symptoms unresponsive to conservative treatment. PROCEDURE DESCRIPTION / TECHNIQUE: The patient was seen and identified in the preoperative area. Risks, benefits, complications, and alternatives were discussed with the patient. The patient agreed to proceed with the procedure and signed the consent. IV was started, and vital signs were stable. Patient was taken to the OR and time out was completed. The patient was placed in the prone position on procedure table and a pillow was placed under the abdomen to reduce lumbar lordosis. The lumbosacral area was prepped and draped in the usual sterile fashion. Critical pause was taken. Vital signs were closely monitored during the procedure. Conscious sedation was used during the procedure to decrease patient s anxiety. Using oblique fluoroscopy, the chin of the `AdriánDominic dog at right L4-5 level was identified, and the skin and deeper tissues just below was localized with 1% lidocaine. Subsequently, a 22-gauge 3.5-inch spinal needle was advanced under a tunneled view fluoroscopic guidance just underneath the chin of the `Loy dog at the right L4-5 Under lateral fluoroscopy, the needle was then advanced to the posterior border of the interforaminal space. After negative aspiration of CSF and blood and with no paresthesias, 1 mL Isovue 200 contrast dye was injected excellent epidurogram and outlining of the nerve root Subsequently, 3 mL of block solution containing 80 mg Depo-Medrol and 2 mL of 0.9% normal saline PF was injected. Needle was removed . At the end of the procedure, skin was cleansed, and bandages were applied. COMPLICATIONS:none DISPOSITION / PLANS: The patient was placed in a supine position and transferred to the recovery area in a stable condition for observation. There was no evidence of lower extremity motor or sensory deficit after the procedure. Patient was discharged from the recovery room after meeting discharge criteria. Home discharge instructions were given to the patient by the staff. The patient was reexamined prior to discharge.
[2022-05-19] MEDS ORDERED: LACTATED RINGERS 1,000 ML IV ONE (13:25)
[2022-05-19 14:00] VITALS: BP 166/93; PULSE 61; RESP 16
--- NOTE | 2022-05-19 14:20 | FL ---
Intraoperative/procedural fluoroscopic services were provided. Total fluoroscopy time is 4 seconds wi th a total of 2 submitted images to PACS. Please see the operative/procedural note for further detail s. DAP: [id number]
== END 2022-05-19 14:04 | disposition home or self-care (01) ==
LOC: ORPAIN 12:12
PROVIDERS: ATTEND Specialist
DX: M51.16 Intervertebral disc disorders with radiculopathy, lumbar region (principal); M47.26 Other spondylosis with radiculopathy, lumbar region
CPT/HCPCS: 64483; J2250; J1040; J3010; Q9966

== ENCOUNTER 2023-05-26 09:02 | Emergency (ER) | payer OTHER ==
[2023-05-26 09:32] VITALS: RESP 18; TEMP 98.1
[2023-05-26] MEDS: KETOROLAC 15 MG/ML 1 ML VIAL IVP STA (10:07)
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
[2023-05-26 10:24] LABS: Basophils % (A) 1 %; Eosinophils # (A) 0.1 k/uL (0-0.7); Eosinophils % (A) 2 %; HCT 45.9 % (39.0-53.0); Lymphocytes # (A) 2.3 k/uL (1.0-4.8); Lymphocytes % (A) 35 %; MCHC 32.6 g/dL (31.0-37.0); MCV 88.9 fL (80.0-100.0); Mean Platelet Volume 7.3; Monocytes # (A) 0.4 k/uL (0-1.0); Monocytes % (A) 6 %; Neutrophils # (A) 3.6 k/uL (1.3-7.7); Neutrophils % (A) 55 %; Platelet Count 226 k/uL (150-450); RBC 5.16 m/uL (4.30-5.90); RDW 12.8 % (11.5-15.5); WBC 6.6 k/uL (3.8-10.6)
[2023-05-26 10:35] LABS: ALT 19 U/L (4-49); AST 26 U/L (17-59); African American GFR (CKD) >90 (>60 ml/min/1.73 sqM); Albumin 4.4 g/dL (3.5-5.0); Alkaline Phosphatase 92 U/L (38-126); Anion Gap 8 mmol/L; Blood Urea Nitrogen 14 mg/dL (9-20); Calcium 9.4 mg/dL (8.4-10.2); Carbon Dioxide 23 mmol/L (22-30); Chloride 108 mmol/L (98-107); Glucose 101 mg/dL (74-99); Non-African American GFR(CKD) >90 (>60 ml/min/1.73 sqM); Potassium 4.7 mmol/L (3.5-5.1); Sodium 139 mmol/L (137-145); Total Bilirubin 0.6 mg/dL (0.2-1.3); Total Protein 7.7 g/dL (6.3-8.2)
[2023-05-26] MEDS: LIDOCAINE 2% INJ 20 MG/ML (10 ML MDV) SQ STA (10:43)
[2023-05-26] MEDS: CEPHALEXIN 500 MG CAP PO STA (11:16)
[2023-05-26] MEDS: SULFAMETHOX-TMP 800-160MG 1 EACH TAB PO STA (11:16)
[2023-05-26 11:20] VITALS: BP 168/101; PULSE 68
== END 2023-05-26 11:20 | disposition home or self-care (01) ==
LOC: EC 09:02
DX: L03.116 Cellulitis of left lower limb (principal); Z88.8 Allergy status to other drugs, medicaments and biological substances
CPT/HCPCS: 36415; 80053; 83605; 85025; 10060; 99284; 96374; J2001; J1885

== ENCOUNTER → 2023-06-09 | Outpatient (CLI) | payer OTHER ==
--- NOTE | 2023-06-09 13:49 | US ---
EXAMINATION TYPE: US extremity nonvasculr ltd LT DATE OF EXAM: 06/09/2023 COMPARISON: NONE CLINICAL INDICATION: Male, 62 years old with history of L02.416 ABSCESS LEFT KNEE; LT BK amputee 1996 , two hard areas at posterior and medial knee. Pt. had medial area lanced TECHNIQUE: several images taken at area of concern FINDINGS: there is a 4.3x0.9x2.5 cm complex area noted at the posterior knee. there is a similar mariia earing area measuring 3.4x0.8x3.6 cm at the medial knee which was lanced through the ER with little s uccess IMPRESSION: As above
== END | disposition home or self-care (01) ==
LOC: RADUSWWP 13:07
PROVIDERS: ATTEND Family Medicine
DX: L02.416 Cutaneous abscess of left lower limb (principal)

== ENCOUNTER → 2023-06-23 | Outpatient (CLI) | payer OTHER ==
--- NOTE | 2023-06-23 11:28 | CT ---
CT left lower extremity with contrast. HISTORY: Left knee swelling and palpable lump. COMPARISON: None. TECHNIQUE: Multiple axial images were obtained from the distal femur through the stump of the lower l eg following contrast menstruation. FINDINGS: There is a below the knee amputation. There is no cortical disruption or periosteal reaction. There is no focal osseous lesion. There is no joint effusion. Beginning at just above the knee joint and progressing distally, there is marked abnormal density in the subcutaneous soft tissues consistent with edema/inflammation. Edema is also seen in the deeper mu scle compartments. In the right posterolateral aspect at the level of the tibial plateau, there is a 2.2 x 1.4 cm somewhat ill-defined mass of soft tissue density. This is a nonspecific finding and coul d represent an abscess or less likely neoplasm. There is no soft tissue gas. IMPRESSION: 1. Below the knee amputation. 2. No osseous abnormality 3. Diffuse soft tissue edema from the knee distally to the level of the stump 4. masslike density in the posterior lateral aspect of the knee. MRI would be be useful for further characterization..
== END | disposition home or self-care (01) ==
LOC: RADCTMAIN 08:53
PROVIDERS: ATTEND Surgery
DX: R60.0 Localized edema (principal); Z89.512 Acquired absence of left leg below knee
CPT/HCPCS: 73701; Q9967

== ENCOUNTER 2023-07-30 10:00 | Emergency (ER) | payer OTHER ==
[2023-07-30 10:55] VITALS: TEMP 97.6
[2023-07-30 11:07] LABS: Basophils # (A) 0.1 k/uL (0-0.2); Basophils % (A) 1 %; Eosinophils # (A) 0.1 k/uL (0-0.7); Eosinophils % (A) 2 %; HCT 44.4 % (39.0-53.0); HGB 14.4 gm/dL (13.0-17.5); Lymphocytes # (A) 2.3 k/uL (1.0-4.8); Lymphocytes % (A) 27 %; MCH 28.5 pg (25.0-35.0); MCHC 32.4 g/dL (31.0-37.0); MCV 87.9 fL (80.0-100.0); Mean Platelet Volume 7.3; Monocytes # (A) 0.5 k/uL (0-1.0); Monocytes % (A) 6 %; Neutrophils # (A) 5.4 k/uL (1.3-7.7); Neutrophils % (A) 64 %; Platelet Count 269 k/uL (150-450); RBC 5.06 m/uL (4.30-5.90); RDW 12.6 % (11.5-15.5); WBC 8.4 k/uL (3.8-10.6)
[2023-07-30 11:18] LABS: ALT 19 U/L (4-49); AST 22 U/L (17-59); African American GFR (CKD) >90 (>60 ml/min/1.73 sqM); Albumin 4.1 g/dL (3.5-5.0); Alkaline Phosphatase 85 U/L (38-126); Anion Gap 7 mmol/L; Blood Urea Nitrogen 18 mg/dL (9-20); C Reactive Protein 1.2 mg/dL (<1.0); Calcium 9.2 mg/dL (8.4-10.2); Carbon Dioxide 22 mmol/L (22-30); Chloride 109 mmol/L (98-107); Glucose 100 mg/dL (74-99); Non-African American GFR(CKD) >90 (>60 ml/min/1.73 sqM); Potassium 4.6 mmol/L (3.5-5.1); Sodium 138 mmol/L (137-145); Total Bilirubin 0.5 mg/dL (0.2-1.3)
--- NOTE | 2023-07-30 11:55 | CT ---
EXAMINATION TYPE: CT lower leg LT w con DATE OF EXAM: 07/30/2023 COMPARISON: None HISTORY: left stump infection, warm to touch, pt states he had sx on 07/12/23 CT DLP: 7-3.9 mGycm Automated exposure control for dose reduction was used. Contrast: 06/23/2023 Technique: Axial images 3 mm thick sections. Reconstructed images in the coronal and sagittal planes. FINDINGS: Left femur appears intact. Surrounding soft tissues are normal. There is a [id number] amputation. There are some mild diffuse increased soft tissue changes at th e level of the amputation. No suspicious cortical erosion is evident. Within the posterior medial left knee there is a 7.2 x 1.6 x 3.2 cm low density collection within the subcutaneous tissues could be an abscess., Example image series 205, image 55 IMPRESSION: 1. SUBCUTANEOUS POSTERIOR LATERAL RIGHT LOWER EXTREMITY LOW DENSITY COLLECTION MAY BE AN ABSCESS. 2. DIFFUSE SUBCUTANEOUS INCREASED DENSITY IS PRESENT THROUGHOUT THE STUMP.
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
[2023-07-30] MEDS: CEPHALEXIN 500 MG CAP PO STA (13:52)
[2023-07-30] MEDS: HYDROmorphone 1 MG/ML 1 ML SYRINGE IVP STA (13:56)
[2023-07-30] MEDS: HYDROmorphone 1 MG/ML 1 ML SYRINGE IM STA (13:56)
[2023-07-30 15:12] VITALS: BP 148/78; PULSE 68; RESP 16
== END 2023-07-30 14:26 | disposition home or self-care (01) ==
LOC: EC 10:00
DX: L02.416 Cutaneous abscess of left lower limb (principal); Z88.6 Allergy status to analgesic agent
CPT/HCPCS: 36415; 80053; 85025; 86140; 87070; 87205; 73701; 99284; 96374; 10060; J1170; Q9967

== ENCOUNTER → 2023-08-10 | Outpatient (CLI) | payer OTHER ==
[2023-08-10 19:29] LABS: ALT 18 U/L (10-49); AST 17 U/L (14-35); Albumin 4.3 g/dL (3.8-4.9); Albumin/Globulin Ratio 1.65 Ratio (1.60-3.17); Alkaline Phosphatase 97 U/L (41-126); BUN/Creat Ratio 19.12 Ratio (12.00-20.00); Blood Urea Nitrogen 15.3 mg/dL (9.0-27.0); Calcium 9.1 mg/dL (8.7-10.3); Carbon Dioxide 21.6 mmol/L (21.6-31.8); Chloride 104 mmol/L (96-109); Globulin 2.6 g/dL (1.6-3.3); Glucose 90 mg/dL (70-110); Potassium 4.4 mmol/L (3.5-5.5); Sodium 139 mmol/L (135-145); Total Bilirubin 0.3 mg/dL (0.3-1.2); Total Protein 6.9 g/dL (6.2-8.2)
[2023-08-10 19:54] LABS: Basophils # (A) 0.03 X 10*3/uL (0.00-0.10); Basophils % (A) 0.4 %; Eosinophils # (A) 0.09 X 10*3/uL (0.04-0.35); Eosinophils % (A) 1.3 %; HCT 41.4 % (39.6-50.0); HGB 13.7 g/dL (13.0-17.0); Lymphocytes # (A) 2.37 X 10*3/uL (0.90-5.00); Lymphocytes % (A) 35.3 %; MCH 28.8 pg (27.0-32.0); MCHC 33.1 g/dL (32.0-37.0); Monocytes # (A) 0.46 X 10*3/uL (0.20-1.00); Monocytes % (A) 6.9 %; NRBC Per 100 WBC 0 X 10*3/uL (0.00-0.01); Neutrophils # (A) 3.74 X 10*3/uL (1.80-7.70); Neutrophils % (A) 55.8 %; Platelet Count 239 X 10*3/uL (140-440); RBC 4.76 X 10*6/uL (4.40-5.60); RDW 12.6 % (11.5-14.5); WBC 6.71 X 10*3/uL (4.50-10.00)
[2023-08-10 20:05] LABS: Erythrocyte Sedimentation Rate 16 mm/Hr (0-20)
[2023-08-10 21:24] LABS: Protein, Total 6.8 g/dL (6.2-8.2)
== END | disposition home or self-care (01) ==
LOC: LABWHC1 11:49
PROVIDERS: ATTEND Internal Medicine
DX: T78.3XXA Angioneurotic edema, initial encounter (principal)
CPT/HCPCS: 36415; 80053; 84165; 84166; 84443; 85025; 85652; 86038; 86140; 86160; 86161; 86332

== ENCOUNTER → 2023-08-21 | Outpatient (CLI) | payer OTHER ==
--- NOTE | 2023-08-21 08:25 | US ---
EXAMINATION TYPE: US Aorta Screening DATE OF EXAM: 08/21/2023 COMPARISON: US 2019, CT 2018 CLINICAL INDICATION: Male, 62 years old with history of Z13.6 Screening Cardiovascular Disease; TECHNIQUE: Multiple sonographic images of the abdominal aorta are obtained. FINDINGS: EXAM MEASUREMENTS: Abdominal Aorta: Proximal: 2.2 x 2.3cm Mid: 2.5 x 2.1cm Distal: obscured by overlying midline bowel gas Bifurcation: Right Iliac: obscured by overlying midline bowel gas Left Iliac: obscured by overlying midline bowel gas Difficult and limited study due to patient body habitus, overlying bowel gas and patient not NPO IMPRESSION: Limited distal exam, No evidence for aortic aneurysm.
== END | disposition home or self-care (01) ==
LOC: RADUSWWP 07:30
PROVIDERS: ATTEND Internal Medicine
DX: Z13.6 Encounter for screening for cardiovascular disorders (principal); I25.10 Atherosclerotic heart disease of native coronary artery without angina pectoris
CPT/HCPCS: 76706

== ENCOUNTER 2024-08-07 19:26 | Emergency (ER) | payer OTHER ==
[2024-08-07 20:06] LABS: Basophils # (A) 0.03 10*3/uL (0.00-0.10); Basophils % (A) 0.3 %; Eosinophils # (A) 0.11 10*3/uL (0.04-0.35); Eosinophils % (A) 1.2 %; HCT 39.6 % (39.6-50.0); HGB 13.5 g/dL (13.0-17.0); Lymphocytes # (A) 2.82 10*3/uL (0.90-5.00); Lymphocytes % (A) 29.9 %; MCH 29.3 pg (27.0-32.0); MCHC 34.1 g/dL (32.0-37.0); MCV 85.9 fL (80.0-97.0); Mean Platelet Volume 9.2 fL (9.5-12.2); Monocytes # (A) 0.69 10*3/uL (0.20-1.00); Monocytes % (A) 7.3 %; Neutrophils # (A) 5.77 10*3/uL (1.80-7.70); Neutrophils % (A) 61.1 %; Platelet Count 243 10*3/uL (140-440); RBC 4.61 10*6/uL (4.40-5.60); RDW 12.7 % (11.5-14.5); WBC 9.44 10*3/uL (4.50-10.00)
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
[2024-08-07 20:20] LABS: ALT 18 U/L (4-49); AST 20 U/L (17-59); African American GFR (CKD) >90 (>60 ml/min/1.73 sqM); Albumin 4.1 g/dL (3.5-5.0); Alkaline Phosphatase 94 U/L (38-126); Anion Gap 7 mmol/L; Blood Urea Nitrogen 18 mg/dL (9-20); Calcium 9.2 mg/dL (8.4-10.2); Carbon Dioxide 25 mmol/L (22-30); Chloride 107 mmol/L (98-107); Glucose 97 mg/dL (74-99); Non-African American GFR(CKD) >90 (>60 ml/min/1.73 sqM); Potassium 3.9 mmol/L (3.5-5.1); Sodium 139 mmol/L (137-145); Total Bilirubin 0.6 mg/dL (0.2-1.3); Total Protein 6.9 g/dL (6.3-8.2)
--- NOTE | 2024-08-07 21:21 | CT ---
EXAMINATION TYPE: CT abdomen pelvis w con DATE OF EXAM: 08/07/2024 9:15 PM COMPARISON: None. CLINICAL INDICATION: Male, 63 years old with history of RLQ pain, Patient states abdominal pain. RLQ. HX OF HERNIA REPAIR TECHNIQUE: Axial images were obtained from above the diaphragm to the pubic rami in the axial plane a t 5 mm thick sections. Reconstructed images are reviewed on the computer in the coronal plane. CONTRAST: 100 ML mL of Isovue 300. Study performed without Oral Contrast DLP: 1148.1 mGycm, Automated exposure control for dose reduction was used. FINDINGS: Limited CT sections are obtained the lung bases. The lung bases are clear. CT ABDOMEN: Liver: Normal Spleen: Normal Pancreas: Normal Adrenal glands: The adrenal glands are normal. Gallbladder: Normal Kidneys: No masses are evident. No hydronephrosis is present. No cysts are present. Delayed images were obtained through the kidneys, which remain unremarkable. Aorta: Vascular calcification is within the aorta. Dense calcifications within the common iliac vess els. Inferior vena cava: Normal. CT PELVIS: Loops of bowel within the abdomen and pelvis are normal. Few scattered diverticuli are present. Th is study is without oral contrast limiting bowel evaluation. Appendix: Normal as visualized. Urinary bladder: Normal. Genitourinary structures: Prostate is prominent Osseous structures: No suspicious lytic or sclerotic lesions. IMPRESSION: 1. No suspicious abnormality right lower quadrant pain. 2. Normal appendix X-Ray Deepak Guevara, , 08/07/2024 9:19 PM
[2024-08-07] MEDS: KETOROLAC 15 MG/ML 1 ML VIAL IVP STA (23:14)
[2024-08-07 23:30] LABS: Appearance,Urine Clear (Clear); Bilirubin,Urine Negative (Negative); Blood,Urine Negative (Negative); Color,Urine Colorless; Glucose,Urine (UA) Negative (Negative); Ketones,Urine Negative (Negative); Leukocyte Esterase,Urine Negative (Negative); Nitrite,Urine Negative (Negative); PH, Urine 5.5 (5.0-8.0); Protein,Urine Negative (Negative); Urobilinogen,Urine <2.0 mg/dL (<2.0)
[2024-08-07 23:55] LABS: Amylase 47 U/L (30-110); Lipase 54 U/L (23-300)
[2024-08-08 00:03] LABS: Specific Gravity,Urine >1.050 (1.001-1.035)
[2024-08-08 00:44] VITALS: BP 169/102; PULSE 62; RESP 17; TEMP 98
== END 2024-08-08 00:49 | disposition home or self-care (01) ==
LOC: EC 19:26
DX: R10.31 Right lower quadrant pain (principal); Z88.8 Allergy status to other drugs, medicaments and biological substances
CPT/HCPCS: 36415; 80053; 82150; 83605; 83690; 85025; 81003; 74177; 99284; 96374; J1885; Q9967

== ENCOUNTER → 2024-09-20 | Outpatient (CLI) | payer OTHER ==
[2024-09-23 06:01] LABS: C1 Esterase Inhibitor, Protein 32 mg/dL (21-39)
== END | disposition home or self-care (01) ==
LOC: LABWHC1 15:33
DX: T78.3XXA Angioneurotic edema, initial encounter (principal)
CPT/HCPCS: 36415; 86160; 86161

== ENCOUNTER → 2024-09-23 | Outpatient (CLI) | payer OTHER | END | disposition home or self-care (01) | LOC: LABWHC1 15:06 | DX: T78.3XXA Angioneurotic edema, initial encounter (principal) | CPT/HCPCS: 36415; 86160; 86161 ==

== ENCOUNTER 2024-10-02 13:08 | Day surgery (SDC) | payer OTHER ==
[~2024-10-02 13:08] MED LIST changes: -LACTATED RINGERS 1,000 ML IV SCH
[2024-10-02] MEDS: IV FLUID CONTINUATION 1,000 ML IV ONE (14:33)
[2024-10-02] MEDS: LACTATED RINGERS 1,000 ML IV SCH (14:42)
[2024-10-02 14:45] VITALS: TEMP 97.3
[2024-10-02] MEDS ORDERED: PROPOFOL 10 MG/ML 20 ML VIAL IV ONE (15:10)
--- NOTE | 2024-10-02 15:29 | P.PCN ---
Date of Procedure: 10/02/24 Procedure(s) Performed: BRIEF HISTORY: Patient is a 63-year-old pleasant white male scheduled for an elective colonoscopy as a part of screening for colon cancer. PROCEDURE PERFORMED: Colonoscopy with biopsy.. PREOPERATIVE DIAGNOSIS: Screening for colon cancer. IV sedation per Anesthesia. PROCEDURE: After informed consent was obtained, the patient, was brought into the endoscopy unit. IV sedation was administered by Anesthesia under continuous monitoring. Digital rectal examination was normal. Initially the Olympus CF-160 flexible video colonoscope was then inserted in the rectum, gradually advanced into the cecum without any difficulty. Careful examination was performed as the scope was gradually being withdrawn. Ileocecal valve and the appendiceal orifice were visualized and appeared normal. Prep was excellent. Mucosa of the cecum, ascending colon, appeared normal. In the transverse colon there were 2 polyps measuring 3 mm in size removed by cold biopsy. Rest of the transverse colon, descending colon, sigmoid colon, and rectum appeared normal. In the proximal rectum there was a 3 mm and 4 mm polyp removed by cold biopsy. Retroflexion was performed in the rectum and no lesions were seen. The patient tolerated the procedure well. IMPRESSION: 3 mm x 2 transverse colon polyp status post cold biopsy 3 millimeter and 4 mm to proximal rectal polyp status post cold biopsy RECOMMENDATIONS: Findings of this examination were discussed with the patient as well as his family. He was advised to follow-up with the biopsy results. If the biopsy reveals adenoma he can have repeat colonoscopy in 5 years.
[2024-10-02 15:38] VITALS: RESP 14
[2024-10-02 15:49] VITALS: BP 132/85; PULSE 50
== END 2024-10-02 16:04 | disposition home or self-care (01) ==
LOC: ORWHC2ENDO 13:08
PROVIDERS: ATTEND Internal Medicine Gastroenterology
DX: Z12.11 Encounter for screening for malignant neoplasm of colon (principal); D12.3 Benign neoplasm of transverse colon; K62.1 Rectal polyp; I25.2 Old myocardial infarction; I10 Essential (primary) hypertension; F32.A Depression, unspecified; Z88.8 Allergy status to other drugs, medicaments and biological substances; Z79.899 Other long term (current) drug therapy
CPT/HCPCS: 45380; 88305